=== PATIENT | female | born 1945 | race Caucasian/White ===

== ENCOUNTER 2019-03-02 11:52 | Emergency (ER) | payer MEDICARE ==
[2019-03-02] MEDS ORDERED: Lidocaine 1% w/Epinephrine 1:100K 20 ML VIAL ONE (12:52)
[2019-03-02] MEDS ORDERED: Adacel (T-DAP) 0.5 ML SYRINGE ONE (13:00)
== END 2019-03-02 13:20 | disposition home or self-care (01) ==
LOC: ERS 11:52
DX: S01.01XA Laceration without foreign body of scalp, initial encounter (principal); Z79.899 Other long term (current) drug therapy; W22.8XXA Striking against or struck by other objects, initial encounter
CPT/HCPCS: 12001; 90471; 90715; J2001

== ENCOUNTER → 2019-03-19 | Day surgery (SDC) | payer MEDICARE | LOC: ER/OP 12:28 | PROVIDERS: ATTEND Emergency Medicine | DX: Z48.02 Encounter for removal of sutures (principal) ==

== ENCOUNTER 2019-04-06 09:07 | Outpatient (CLI) | payer MEDICARE ==
--- NOTE | 2019-04-06 11:49 | CT ---
CT ABDOMEN AND PELVIS WITH IV CONTRAST 04/06/2019 CLINICAL INFORMATION: Gastroesophageal reflux. 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 COMPARISON: CT abdomen on 10/28/[address] abdomen and pelvis on 07/15/2016. Technique: Multiple contiguous axial CT images are obtained through the abdomen and pelvis with IV contrast. Cor onal reformatted images are provided. FINDINGS: Lower Chest: Lung bases are clear. There is partial visualization of vascular calcifications in the c oronary arteries. Vessels: Vascular calcifications are seen in the abdominal aorta and involving the iliac arteries. Abdomen: Portal vein:Patent Gallbladder: Increased density layering dependently within the gallbladder lumen which may represent either sludge or gallbladder calculi. Liver: Stable subcentimeter too small to characterize hypodense lesions are seen in the liver statist ically likely representing small cysts but are too small to characterize. Spleen: within normal limits. Pancreas: within normal limits. Adrenals: within normal limits. Kidneys: The right kidney is atrophic with renal cortical thinning and multifocal areas of scarring. The large cyst midportion right kidney is again seen measuring 4.5 cm. There are a few approximately 2 to 3 mm nonobstructing calculi in the right kidney. A 10 mm nonobstructing calculus i s present in the inferior pole left kidney, and only a punctate calculus was seen in this region on prior exam. There is a calcification seen at the superior pole left kidney which is in a region of co rtical scarring; this may represent a cortically based calcification. This measures 9 mm. A few subcentimeter too small to characterize hypodense lesions are seen in the left kidney. There is no hy dronephrosis. Bowel: There are postsurgical changes related to partial gastrectomy with absence of the majority of the stomach. Suture material is seen in the region of the gastrojejunostomy. Loops of small bowel just distal to the gastrojejunostomy are mildly dilated, but this is nonspecific, and there are no fi ndings to suggest bowel obstruction. The opacified loops of small bowel are otherwise within normal limits. Colonic diverticulosis is again seen. Appendix: The appendix is visualized and normal in caliber. Peritoneum: No ascites or free air; no fluid collection. Mesentery and Retroperitoneum: No enlarged mesenteric or retroperitoneal lymph nodes. Abdominal Wall: within normal limits. Pelvis: Reproductive Organs: Evidence of prior hysterectomy. Pelvis within normal limits. Bladder: Decompressed but grossly normal in appearance. Bones: No suspicious lytic or sclerotic osseous lesions are identified. IMPRESSION: 1. Postsurgical changes in the upper abdomen with findings suggestive of partial gastrectomy with abs ence of the majority of the stomach. Loops of small bowel in this distal to the gastrojejunostomy appear mildly dilated, but there are no findings to suggest bowel obstruction. There is mild thickeni ng of the residual small gastric remnant, but this may be related to incomplete distention. 2. Atrophic right kidney with multifocal areas of cortical scarring, right renal cyst, and nonobstruc ting right renal calculi. 3. Nonobstructing left renal calculus. 4. Colonic diverticulosis with innumerable colonic diverticuli. 5. Increased density material layering in dependent portion of the gallbladder lumen which may repres ent small amount of sludge and/or gallbladder calculi. 6. Vascular calcifications.
[2019-04-06] MEDS ORDERED: ISOVUE-370 76%-LOCM 1 ML ONE (16:31)
== END 2019-04-06 09:08 | disposition home or self-care (01) ==
LOC: BICCT 09:07
PROVIDERS: ATTEND Surgery
DX: K21.9 Gastro-esophageal reflux disease without esophagitis (principal); N28.1 Cyst of kidney, acquired; K57.30 Diverticulosis of large intestine without perforation or abscess without bleeding; Z98.890 Other specified postprocedural states
CPT/HCPCS: 74177; 82565